=== PATIENT | female | born 1970 | race Caucasian/White ===

== ENCOUNTER 2025-03-22 16:13 | Outpatient (RCR) | payer MEDICAID, SELFPAY | END 2025-03-22 16:30 | disposition home or self-care (01) | LOC: HO.WCC 16:13 | PROVIDERS: Visit Provider Surgery | DX: K31.6 Fistula of stomach and duodenum (principal); E11.9 Type 2 diabetes mellitus without complications; I10 Essential (primary) hypertension; E66.01 Morbid (severe) obesity due to excess calories; Z86.718 Personal history of other venous thrombosis and embolism | CPT/HCPCS: 17250; 99212 ==